=== PATIENT | male | born 1950 | race Caucasian/White ===

== ENCOUNTER 2022-04-23 10:18 | Inpatient (IN) ==
[2022-04-23] MEDS ORDERED: ALBUT/IPRATROP 3MG/0.5MG NEB 3 ML VIAL NEB STA (10:32)
[2022-04-23] MEDS ORDERED: methylPREDNISolone 125 MG/2 ML VIAL IV STA (10:32)
--- NOTE | 2022-04-23 10:38 | Emergency Department Note ---
Impression & Plan Left lower lobe pneumonia, Retrosternal chest pain, Hypoxia, Cough productive of yellow sputum ED Provider Note INFORMANT: Patient ED PROVIDER(S): Juan Ramon Stanton MD CHIEF COMPLAINT: Chest pain PLAN: Disposition: Admitted Condition: Good Outpatient prescription management: none Referral: None MEDICAL DECISION MAKING: Patient presented because of breathing issues and chest pain. Work-up was initiated. ECG did not show ischemia. X-ray was concerning for left lower lobe infiltrate. Patient had blood cultures obtained. His CBC and chemistry panel was unremarkable. Patient was treated with IV Rocephin and doxycycline after discussion with the ED pharmacist. Patient was also treated with a DuoNeb and Solu-Medrol. On reassessment he was feeling better but still requiring leiva pplemental oxygen. Further management in the hospital will be necessary. Consultation was made with the [facility] hospitalist service. Patient was evaluated in the ER and admitted for further management Triage Nursing notes reviewed and agree them. Vital Signs: reviewed and remarkable for hypoxia Differential diagnosis: COVID, influenza, cardiac ischemia, aortic dissection, pulmonary embolism, pneumothorax, pneumonia, pericarditis, myocarditis, esophageal rupture, GERD, cholecystitis, pancreatitis, musculoskeletal, as well as other pathologies. Diagnostics interpreted by me: ECG: Twelve-lead ECG reveals sinus rhythm with first-degree block at 76 bpm. Left anterior fascicular block and LVH present. No ST elevation. Cardiac Monitoring: Cardiac monitoring ordered by me: The patient was placed on continuous cardiac monitoring and observed. It revealed a normal sinus rhythm at 83 beats per minute without ectopy or evidence of dysrhythmia. Imaging studies: Chest x-ray consistent with left lower lobe infiltrate HPI: The patient is a 71year old male who presents to the Emergency Room with complaints of chest pain. This started just prior to arrival while at the [facility] GI clinic and is currently resolved. Patient states it was retrosternal. He was noted to have an O2 saturation in the 80s. He responded to supplemental oxygen. Patient denies wearing oxygen on a regular basis. The patient also notes the following associated symptoms, productive cough. The patient has been given no medication for relieving factors. Current pain is rated as 0/10. No known sick contacts. Pt denies LOC, headache, fevers, chills, neck pain, nausea, vomiting, abdominal pain, back pain, urinary symptoms, weakness, lymphadenopathy, rash, or other complaints. ROS: See above HPI for pertinent positives & negatives. A total of 10 systems reviewed and were otherwise negative. PAST MEDICAL HISTORY:See Below , hypertension PAST SURGICAL HISTORY:See Below, right shoulder surgery FAMILY HISTORY:See Below SOCIAL HISTORY:See Below, lives in a personal assisted HOME MEDICATIONS:See Below ALLERGIES:See Below VITALS:See Below PHYSICAL EXAMINATION: GENERAL: Awake, alert, psu-[id number]-[id number], in no distress HENT: Normocephalic, atraumatic. Oropharynx unremarkable. EYES: Normal conjunctiva. Sclera non-icteric. NECK: Inspection normal. Non-tender. Supple. No nuchal rigidity. FROM. No masses. RESPIRATORY: Clear to auscultation. No wheezes. No rales. Normal respiratory effort. CARDIAC: Normal rate. Normal rhythm. No murmurs. No rubs. Extremities warm and well perfused. Pulses equal. No JVD. GI: Soft, non-distended. No tenderness to palpation. No rebound or guarding. No masses. RECTAL: Deferred. MUSCULOSKELETAL: Atraumatic. Chest examination reveals no tenderness. The back is symmetrical on inspection without obvious abnormality. There is no CVA tenderness to palpation. No joint edema. LOWER EXTREMITIES: Calves are equal size bilaterally and non-tender. 2-3+ edema. No discoloration. NEURO: Normal sensorium. No sensory or motor deficits noted. SKIN: No rash or jaundice noted. Juan Ramon Stanton MD Past Med/Surg History Medical History (Updated 04/23/22 @ 16:50 by Juan Ramon Stanton MD) Adjustment disorder Bipolar disorder Cirrhosis of liver COPD (chronic obstructive pulmonary disease) DM II (diabetes mellitus, type II), controlled History of nephrolithotomy with removal of calculi HLD (hyperlipidemia) HTN (hypertension) Hypothyroidism Surgical History (Updated 04/23/22 @ 12:44 by Mary Ann Mcarthur PA-C) Hx of colonoscopy Hx of esophagogastroduodenoscopy Hx of inguinal hernia repair Family History (Updated 04/23/22 @ 12:45 by Mary Ann Mcarthur PA-C) Other Cancer Dementia Liver disease Social History (Updated 04/23/22 @ 12:46 by Mary Ann Mcarthur PA-C) Smoking Status: Current some day smoker Tobacco Type: Cigarettes, Pipe and Cigars packs per day: 0.25; Hx Alcohol Use: Yes Alcohol type: beer Feels Safe at Home: Yes Allergies Allergies Allergy/AdvReac Type Severity Reaction Status Date / Time No Known Drug Allergies Allergy Verified 04/23/22 13:30 Home Meds Home Medications Medication Instructions Recorded Confirmed alfuzosin 10 mg tablet,extended 10 mg PO QAM 04/23/22 04/23/22 release 24 hr aspirin 81 mg tablet,delayed 81 mg PO QAM 04/23/22 04/23/22 release famotidine 40 mg tablet 40 mg PO BID 04/23/22 04/23/22 ferrous sulfate 325 mg (65 mg 325 mg PO QAM 04/23/22 04/23/22 iron) tablet (FeroSul) fluticasone fur. 100 mcg-umeclid 1 inh inhalation DAILY 04/23/22 04/23/22 62.5 mcg-vilant 25 mcg inhalat.powder (Trelegy Ellipta) furosemide 20 mg tablet 20 mg PO QAM 04/23/22 04/23/22 glipizide 10 mg tablet, extended 100 mg PO BID 04/23/22 04/23/22 release 24 hr ibuprofen 800 mg tablet 800 mg PO TID 04/23/22 04/23/22 ipratropium 0.5 mg-albuterol 3 mg 1 ml inhalation TID 04/23/22 04/23/22 (2.5 mg base)/3 mL nebulization soln levothyroxine 150 mcg tablet 150 mcg PO QAM 04/23/22 04/23/22 lisinopril 20 mg tablet 20 mg PO QAM 04/23/22 04/23/22 loperamide 2 mg capsule 2 mg PO Q4H PRN Diarrhea 04/23/22 04/23/22 magnesium oxide 400 mg (241.3 mg 400 mg PO QAM 04/23/22 04/23/22 magnesium) tablet omeprazole 20 mg capsule,delayed 20 mg PO QAM 04/23/22 04/23/22 release oxybutynin chloride 5 mg tablet 5 mg PO BID 04/23/22 04/23/22 potassium chloride 20 mEq 20 meq PO QAM 04/23/22 04/23/22 tablet,extended release(part/cryst) simvastatin 40 mg tablet 40 mg PO DAILY 04/23/22 04/23/22 vit C 250 mg-vit E 90 mg-zinc 40 2 tab PO QAM 04/23/22 04/23/22 mg-copper 1 [id number] capsule (PreserVision AREDS-2) Results & Data (ED) Vital Signs Vital Signs - 24 hr 04/23/22 10:20 04/23/22 10:40 04/23/22 11:27 Temperature 36.8 C Temperature Source Oral Pulse Rate 80 Pulse Rate [Right Finger] Pulse Rhythm [Right Finger] Respiratory Rate 20 Respiratory Effort / Characteristics Respiratory Depth Respiratory Pattern Blood Pressure 143/90 H Blood Pressure [Right Arm] Blood Pressure Mean 107 Blood Pressure Mean [Right Arm] Blood Pressure Position [Right Arm] Pulse Oximetry 93 93 97 Oxygen Delivery Method Nasal Cannula Nasal Cannula Room Air Oxygen Flow Rate 4 3 Sepsis Recent Fever Within 48 Hours No Sepsis New/Unexplained Change in Mental Status N/A Sepsis Action Taken by Nursing No Action Required 04/23/22 12:08 Temperature 36.7 C Temperature Source Oral Pulse Rate Pulse Rate [Right Finger] 75 Pulse Rhythm [Right Finger] Regular Respiratory Rate 24 Respiratory Effort / Characteristics Spontaneous Labored Respiratory Depth Shallow Respiratory Pattern Rapid/Shallow Blood Pressure Blood Pressure [Right Arm] 158/102 H Blood Pressure Mean Blood Pressure Mean [Right Arm] 120 Blood Pressure Position [Right Arm] Lying Pulse Oximetry 90 Oxygen Delivery Method Nasal Cannula Oxygen Flow Rate 5 Sepsis Recent Fever Within 48 Hours Sepsis New/Unexplained Change in Mental Status Sepsis Action Taken by Nursing Laboratory Data Result diagrams: 04/23/22 11:02 04/23/22 11:02 Lab Results 04/23/22 04/23/22 04/23/22 Range/Units 11:02 11:02 11:02 WBC 7.48 (4.8-10.8) K/ul RBC 5.09 (4.63-6.08) M/uL Hgb 16.0 (14.0-18.0) g/dl Hct 47.3 (40.1-51.0) % MCV 92.9 (80.0-100.0) fL MCH 31.4 (25.0-34.0) pg MCHC 33.8 (32.0-36.0) g/dL RDW Std Deviation 45.5 (36.4-46.3) fL RDW Coeff of Anahy 13.3 (11.5-14.5) % Plt Count 178 (130-400) K/uL MPV 10.4 (9.4-12.4) fL Immature Gran % (Auto) 0.5 % Neut % (Auto) 70.0 % Lymph % (Auto) 20.9 % [place] % (Auto) 6.7 % Eos % (Auto) 1.2 % Baso % (Auto) 0.7 % Neut # (Auto) 5.24 (1.4-6.5) K/uL Lymph # (Auto) 1.56 (1.2-3.4) K/uL [place] # (Auto) 0.50 (0.24-0.82) K/uL Eos # (Auto) 0.09 (0-0.50) K/uL Baso # (Auto) 0.05 (0-0.2) K/uL Immature Gran # (Auto) 0.04 H (0.00-0.02) K/uL Sodium 136 (136-145) mmol/L Potassium 4.3 (3.5-5.1) mmol/L Chloride 99 (98-107) mmol/L Carbon Dioxide 30 (21-32) mmol/L Anion Gap 7 (3-11) BUN 23 (6-23) mg/dl Creatinine 0.78 (0.6-1.4) mg/dl Est Cr Clr Drug Dosing 133.9 ml/min Est GFR ( Amer) 106.0 ml/min Est GFR (Non-Af Amer) 91.5 ml/min BUN/Creatinine Ratio 29.5 H (10-20) Glucose 255 H (70-99(Fasting)) mg/dl Calcium 9.0 (8.5-10.1) mg/dl Total Bilirubin 0.4 (0.2-1.0) mg/dl AST 25 (13-39) U/L ALT 29 (7-52) U/L Alkaline Phosphatase 102 (34-104) U/L Troponin I High Sens 13.3 (0-20) pg/ml B-Natriuretic Peptide 24 (0-100) pg/ml Total Protein 7.0 (6.0-8.3) gm/dl Albumin 4.0 (3.4-5.0) gm/dl Globulin 3.0 (2.5-4.0) gm/dl Albumin/Globulin Ratio 1.3 (0.9-2) Lipase 20 (11-82) U/L Procalcitonin (0-0.5) ng/ml SARS-CoV-2 (PCR) (Negative) Influenza Type A (PCR) (Neg) Influenza Type B (PCR) (Neg) RSV (RT-PCR) (Neg) 04/23/22 04/23/22 Range/Units 11:02 11:05 WBC (4.8-10.8) K/ul RBC (4.63-6.08) M/uL Hgb (14.0-18.0) g/dl Hct (40.1-51.0) % MCV (80.0-100.0) fL MCH (25.0-34.0) pg MCHC (32.0-36.0) g/dL RDW Std Deviation (36.4-46.3) fL RDW Coeff of Anahy (11.5-14.5) % Plt Count (130-400) K/uL MPV (9.4-12.4) fL Immature Gran % (Auto) % Neut % (Auto) % Lymph % (Auto) % [place] % (Auto) % Eos % (Auto) % Baso % (Auto) % Neut # (Auto) (1.4-6.5) K/uL Lymph # (Auto) (1.2-3.4) K/uL [place] # (Auto) (0.24-0.82) K/uL Eos # (Auto) (0-0.50) K/uL Baso # (Auto) (0-0.2) K/uL Immature Gran # (Auto) (0.00-0.02) K/uL Sodium (136-145) mmol/L Potassium (3.5-5.1) mmol/L Chloride (98-107) mmol/L Carbon Dioxide (21-32) mmol/L Anion Gap (3-11) BUN (6-23) mg/dl Creatinine (0.6-1.4) mg/dl Est Cr Clr Drug Dosing ml/min Est GFR ( Amer) ml/min Est GFR (Non-Af Amer) ml/min BUN/Creatinine Ratio (10-20) Glucose (70-99(Fasting)) mg/dl Calcium (8.5-10.1) mg/dl Total Bilirubin (0.2-1.0) mg/dl AST (13-39) U/L ALT (7-52) U/L Alkaline Phosphatase (34-104) U/L Troponin I High Sens (0-20) pg/ml B-Natriuretic Peptide (0-100) pg/ml Total Protein (6.0-8.3) gm/dl Albumin (3.4-5.0) gm/dl Globulin (2.5-4.0) gm/dl Albumin/Globulin Ratio (0.9-2) Lipase (11-82) U/L Procalcitonin 0.11 (0-0.5) ng/ml SARS-CoV-2 (PCR) NEGATIVE (Negative) Influenza Type A (PCR) Negative (Neg) Influenza Type B (PCR) Negative (Neg) RSV (RT-PCR) Negative (Neg) Administered Medications Albuterol (Albut/Ipratrop 3mg/0.5mg Neb 3 Ml Vial) 3 ml NEB Q4R ADILENE; Protocol Stop: 05/23/22 15:01 Last Admin: 04/23/22 15:52 Dose: 3 ml Documented By: EAMiguel Discontinued Medications Albuterol (Albut/Ipratrop 3mg/0.5mg Neb 3 Ml Vial) 3 ml NEB NOW STA; Protocol Stop: 04/23/22 10:33 Last Admin: 04/23/22 11:03 Dose: 3 ml Documented By: TABATHA Ceftriaxone Sodium (Rocephin) 2,000 mg in 70 mls @ 140 mls/hr IV NOW STA Stop: 04/23/22 11:29 Last Infusion: 04/23/22 12:21 Dose: 0 mls/hr Documented By: Admin: 04/23/22 11:49 Dose: 140 mls/hr Documented By: NIKKO Doxycycline Hyclate 100 mg/ (Dextrose) 110 mls @ 50 mls/hr IV NOW STA Stop: 04/23/22 13:11 Last Infusion: 04/23/22 14:31 Dose: 0 mls/hr Documented By: Admin: 04/23/22 12:01 Dose: 50 mls/hr Documented By: NIKKO Methylprednisolone (Methylprednisolone 125 Mg/2 Ml Vial) 125 mg IV NOW STA Stop: 04/23/22 10:33 Last Admin: 04/23/22 11:04 Dose: 125 mg Documented By: [facility] Imaging Data Radiologist's Impression: Chest X-Ray 04/23/22 10:24 XR chest 1V portable HISTORY: Atypical Chest pain, nonspecific COMPARISON: None. FINDINGS: No pneumothorax. There are low lung volumes. The heart is mildly enlarged. There is perihilar interstitial/vascular thickening consistent with mild congestive change. There are patchy left lower lobe airspace opacities. Mild elevation the right hemidiaphragm. There is a right shoulder prosthesis. IMPRESSION: 1. Patchy left basilar airspace opacities likely representing a pneumonia. 2. Cardiomegaly with mild congestive change. ACT 112: Negative or not required by law. Electronically signed by: Evens Mendez M.D. 04/23/2022 10:45 AM Discharge Plan Visit Data Chief Complaint: Chest Pain ED Provider: Juan Ramon Stanton Discharge Problem: Left lower lobe pneumonia, Retrosternal chest pain, Hypoxia, Cough productive of yellow sputum Patient Disposition: Admitted As Inpatient Discharge Instructions Interventions: ED Discharge Assessment Last Done: 04/23/22 15:01
--- NOTE | 2022-04-23 10:46 | XRay Report ---
XR chest 1V portable HISTORY: Atypical Chest pain, nonspecific COMPARISON: None. FINDINGS: No pneumothorax. There are low lung volumes. The heart is mildly enlarged. There is perihil ar interstitial/vascular thickening consistent with mild congestive change. There are patchy left low er lobe airspace opacities. Mild elevation the right hemidiaphragm. There is a right shoulder prosthe sis. IMPRESSION: 1. Patchy left basilar airspace opacities likely representing a pneumonia. 2. Cardiomegaly with mild congestive change. ACT 112: Negative or not required by law. Electronically signed by: Evens Mendez M.D. 04/23/2022 10:45 AM
[2022-04-23] MEDS ORDERED: DOXYCYCLINE HYCLATE 100 MG in DEXTROSE 5% 100 ML IV STA (11:00)
[2022-04-23] MEDS ORDERED: cefTRIAXone SODIUM 2,000 MG/70 ML BAG IV STA (11:00)
[2022-04-23 11:37] LABS: Basophils # (auto) 0.05 K/uL (0-0.2); Basophils % (auto) 0.7 %; Eosinophils # (auto) 0.09 K/uL (0-0.50); Eosinophils % (auto) 1.2 %; Hematocrit (blood only) 47.3 % (40.1-51.0); Immature Granulocytes # (auto) 0.04 K/uL (0.00-0.02); Immature Granulocytes % (auto) 0.5 %; Lymphocytes # (auto) 1.56 K/uL (1.2-3.4); Lymphocytes % (auto) 20.9 %; Mean Corpuscular Hemoglobin 31.4 pg (25.0-34.0); Mean Corpuscular Hgb Conc 33.8 g/dL (32.0-36.0); Mean Corpuscular Volume 92.9 fL (80.0-100.0); Mean Platelet Volume 10.4 fL (9.4-12.4); Monocytes % (auto) 6.7 %; Neutrophils # (auto) 5.24 K/uL (1.4-6.5); Platelet Count 178 K/uL (130-400); RDW Coefficient of Variation 13.3 % (11.5-14.5); RDW Standard Deviation 45.5 fL (36.4-46.3); Red Blood Count 5.09 M/uL (4.63-6.08); White Blood Count 7.48 K/ul (4.8-10.8)
[2022-04-23 11:58] LABS: Albumin Globulin Ratio 1.3 (0.9-2); BUN Creatinine Ratio 29.5 (10-20); Bilirubin,Total 0.4 mg/dl (0.2-1.0); Creatinine Clr Calc Pharmacy 133.9 ml/min; Est GFR (Non-African American) 91.5 ml/min; Potassium 4.3 mmol/L (3.5-5.1)
[2022-04-23 12:00] LABS: Troponin I High Sensitivity 13.3 pg/ml (0-20)
[2022-04-23 12:23] LABS: Influenza A virus by PCR Negative (Neg); Influenza B virus by PCR Negative (Neg); RSV by PCR Negative (Neg); SARS CoV2 RNA(COVID-19) Ceph NEGATIVE (Negative)
--- NOTE | 2022-04-23 12:49 | History & Physical Report ---
Date of Service April 23, 2022 Assessment & Plan (1) Acute respiratory failure with hypoxia: (2) COPD (chronic obstructive pulmonary disease): (3) Left lower lobe pneumonia: Plan: - Admit to med surg with tele - Supportive care with mucinex, duonebs QID and Q2H prn, cough syrup. No further steroids at this time, given 125 mg Solumedrol in the ER. Day team to reassess - Wean O2 prn - wears 2.5 L previously as outpt but is noncompliant. Scheduled for outpt sleep study for likely DONNA with morbid obesity. Also likely has component of obesity hypoventilation syndrome with body habitus. - Influenza, covid and RSV neg - WBC at time of admission = 7.48 - BCx x 2, follow - Afebrile - Lactic acid , Procalcitonin and CRP pending - CXR reviewed as above showing the LLL pneumonia, personally reviewed images by myself - Continue antibiotic therapy with Ceftriaxone and doxycycline IV - Hx of smoking 0.25 ppd x 40 years, quit a few months ago when became resident of this facility (4) Retrosternal chest pain: Plan: - Sound that this was acutally respiratory in nature secondary to above - EKG reviewed, no current chest pain, takes baby aspirin and statin daily , check EKG with am labs - Check 2d echo for completeness - Initial high sensitivity trop was 13.3, will repeat now to ensure no elevation (5) HTN (hypertension): Plan: - Continue lisinopril, lasix (6) HLD (hyperlipidemia): Plan: - Cont statin therapy (7) Cirrhosis of liver: Plan: - Noted on GI notes from today that this was seen on imaging. Pt reports previousl alchol history but not since being in [facility]. - Will need PCP to monitor - Lower extremity edema being treated with lasix (8) DM II (diabetes mellitus, type II), controlled: Plan: - Last A1C was 7.6, will recheck with am labs - Continue ISS with accuchecks achs - Hold glipizide and metformin for now - Glucose was elevated at 255 upon arrival - Glycemic pharmacy consulted (9) Hypothyroidism: Plan: - Cont levothyroxine 150 mcg daily (10) Bipolar disorder: (11) Adjustment disorder: Plan: - Does not appear that the patient is on any mood stabilizing medication. Cooperative and pleasant for exam so at this time no needs for psych consult. DVT ppx: - teds, scds, Lovenox subcu CODE: Full code Dispo: From home, likely to remain in the hospital x 1-2 days. From [facility] in [place], counseling case manager to assist with discharge planning. History of Present Illness Chief Complaint: Substernal chest pain, shortness of breath Primary Care Provider: Zohra Loo This is a 71-year-old male with PMHx of HTN, HLD, COPD, DM type II, hypothyroidism, bipolar and personality disorder, morbid obesity with BMI of 41.1 who presents to the ER from the GI clinic today after development of substernal chest pain and found to be hypoxic with O2 sats in the low 80s. The patient reports that he has been coughing and bringing up yellow to clear mucus occasionally in the last week. He notes this has been going on for months but feels it specifically worsened in the last week. He denies any known sick contacts but does come from [facility] in [facility] and is around many residents. He denies any other upper respiratory symptoms including fever, chills or sweats. His appetite has been good, no abdominal complaints, bowels moving regularly, no complaints of urination. Discussion with nurse at [facility] was held via phone, she reports that he is supposed to wear 2.5 L of O2 at rest and with exertion however he stopped doing this several months ago. Patient had a right humerus fracture after a fall sustained in December 2021 which was treated surgically and after that procedure, he felt that he did not need to wear O2 any longer. He is scheduled for an outpatient sleep apnea study soon however is not currently on any CPAP. Allergies Allergy/AdvReac Type Severity Reaction Status Date / Time No Known Drug Allergies Allergy Verified 04/23/22 13:30 Home Medications Medication Instructions Recorded Confirmed Type alfuzosin 10 mg tablet,extended 10 mg PO QAM 04/23/22 04/23/22 History release 24 hr aspirin 81 mg tablet,delayed 81 mg PO QAM 04/23/22 04/23/22 History release famotidine 40 mg tablet 40 mg PO BID 04/23/22 04/23/22 History ferrous sulfate 325 mg (65 mg 325 mg PO QAM 04/23/22 04/23/22 History iron) tablet (FeroSul) fluticasone fur. 100 mcg-umeclid 1 inh inhalation DAILY 04/23/22 04/23/22 History 62.5 mcg-vilant 25 mcg inhalat.powder (Trelegy Ellipta) furosemide 20 mg tablet 20 mg PO QAM 04/23/22 04/23/22 History glipizide 10 mg tablet, extended 100 mg PO BID 04/23/22 04/23/22 History release 24 hr ibuprofen 800 mg tablet 800 mg PO TID 04/23/22 04/23/22 History ipratropium 0.5 mg-albuterol 3 mg 1 ml inhalation TID 04/23/22 04/23/22 History (2.5 mg base)/3 mL nebulization soln levothyroxine 150 mcg tablet 150 mcg PO QAM 04/23/22 04/23/22 History lisinopril 20 mg tablet 20 mg PO QAM 04/23/22 04/23/22 History loperamide 2 mg capsule 2 mg PO Q4H PRN Diarrhea 04/23/22 04/23/22 History magnesium oxide 400 mg (241.3 mg 400 mg PO QAM 04/23/22 04/23/22 History magnesium) tablet omeprazole 20 mg capsule,delayed 20 mg PO QAM 04/23/22 04/23/22 History release oxybutynin chloride 5 mg tablet 5 mg PO BID 04/23/22 04/23/22 History potassium chloride 20 mEq 20 meq PO QAM 04/23/22 04/23/22 History tablet,extended release(part/cryst) simvastatin 40 mg tablet 40 mg PO DAILY 04/23/22 04/23/22 History vit C 250 mg-vit E 90 mg-zinc 40 2 tab PO QAM 04/23/22 04/23/22 History mg-copper 1 [id number] capsule (PreserVision AREDS-2) Past Med/Surg History Medical History (Updated 04/23/22 @ 13:50 by Mary Ann Mcarthur PA-C) Adjustment disorder Bipolar disorder Cirrhosis of liver COPD (chronic obstructive pulmonary disease) DM II (diabetes mellitus, type II), controlled History of nephrolithotomy with removal of calculi HLD (hyperlipidemia) HTN (hypertension) Hypothyroidism Surgical History (Updated 04/23/22 @ 12:44 by Mary Ann Mcarthur PA-C) Hx of colonoscopy Hx of esophagogastroduodenoscopy Hx of inguinal hernia repair Family History (Updated 04/23/22 @ 12:45 by Mary Ann Mcarthur PA-C) Other Cancer Dementia Liver disease Social History (Updated 04/23/22 @ 12:46 by Mary Ann Mcarthur PA-C) Smoking Status: Current some day smoker Tobacco Type: Cigarettes, Pipe and Cigars packs per day: 0.25; Hx Alcohol Use: Yes Alcohol type: beer Feels Safe at Home: Yes Review of Systems Review of Systems: Constitutional: No fever, sweats or chills Eyes: No diplopia, no worsening or blurred vision ENT: normal hearing, no trouble swallowing Respiratory: + cough, +sputum, +dyspnea on exertion Cardiovascular: No chest pain currently, tightness or palpitations Abdomen: No pain, nausea, vomiting, diarrhea or constipation Musculoskeletal: No joint pain, calf pain, swelling Neurologic: No weakness, numbness/tingling, or balance problems Psychiatric: No anxiety or depression, history of bipolar Skin: No rash or itch Physical Exam Physical Exam: General: awake, alert, no apparent distress, morbidly obese with BMI of 41 Head: Normocephalic, atraumatic ENT: PERRL, EOMI, no pharyngeal exudate, mucous membranes moist Chest: Left lobe with diminished breath sounds as well as inspiratory and expiratory wheeze, rales. Maintaining at low 90s on oximask, right side without no adventitious breath sounds Cardiac: Regular rate and rhythm, no murmur, no JVD, normal peripheral pulses, good capillary refill Abdominal: NABS x 4 quadrants, soft, nondistended, nontender to palpation, no rebound or guarding Extremities: Normal inspection, 1+ peripheral edema of BLE, minimal pitting, no erythema, calfs nontender to palpation Psych: Normal mood and affect, pill-rolling behavior with his left hand throughout exam Neuro: AAO x 3, strength intact bilaterally and rated 5/5, no motor deficits, speech is clear, no peripheral sensory deficits Results & Data Results & Data ([facility]) Vital Signs (Past 12 Hours) Vital Signs Temp Pulse Pulse Resp BP BP Pulse Ox 04/23/22 12:08 36.7 C 75 24 158/102 H 90 04/23/22 11:27 97 04/23/22 10:40 93 04/23/22 10:20 36.8 C 80 20 143/90 H 93 O2 Del Method O2 Flow Rate 04/23/22 12:08 Nasal Cannula 5 04/23/22 11:27 Room Air 04/23/22 10:40 Nasal Cannula 3 04/23/22 10:20 Nasal Cannula 4 Laboratory Results 04/23/22 11:40 Aerobic Blood Culture - Pending Blood Anaerobic Blood Culture - Pending 04/23/22 11:09 Aerobic Blood Culture - Pending Blood Anaerobic Blood Culture - Pending 04/23/22 04/23/22 04/23/22 11:05 11:02 11:02 WBC RBC Hgb Hct MCV MCH MCHC RDW Std Deviation RDW Coeff of Anahy Plt Count MPV Immature Gran % (Auto) Neut % (Auto) Lymph % (Auto) [place] % (Auto) Eos % (Auto) Baso % (Auto) Neut # (Auto) Lymph # (Auto) [place] # (Auto) Eos # (Auto) Baso # (Auto) Immature Gran # (Auto) Sodium 136 Potassium 4.3 Chloride 99 Carbon Dioxide 30 Anion Gap 7 BUN 23 Creatinine 0.78 Est Cr Clr Drug Dosing 133.9 Est GFR ( Amer) 106.0 Est GFR (Non-Af Amer) 91.5 BUN/Creatinine Ratio 29.5 H Glucose 255 H Calcium 9.0 Total Bilirubin 0.4 AST 25 ALT 29 Alkaline Phosphatase 102 Troponin I High Sens 13.3 B-Natriuretic Peptide 24 Total Protein 7.0 Albumin 4.0 Globulin 3.0 Albumin/Globulin Ratio 1.3 Lipase 20 SARS-CoV-2 (PCR) NEGATIVE Influenza Type A (PCR) Negative Influenza Type B (PCR) Negative RSV (RT-PCR) Negative 04/23/22 11:02 WBC 7.48 RBC 5.09 Hgb 16.0 Hct 47.3 MCV 92.9 MCH 31.4 MCHC 33.8 RDW Std Deviation 45.5 RDW Coeff of Anahy 13.3 Plt Count 178 MPV 10.4 Immature Gran % (Auto) 0.5 Neut % (Auto) 70.0 Lymph % (Auto) 20.9 [place] % (Auto) 6.7 Eos % (Auto) 1.2 Baso % (Auto) 0.7 Neut # (Auto) 5.24 Lymph # (Auto) 1.56 [place] # (Auto) 0.50 Eos # (Auto) 0.09 Baso # (Auto) 0.05 Immature Gran # (Auto) 0.04 H Sodium Potassium Chloride Carbon Dioxide Anion Gap BUN Creatinine Est Cr Clr Drug Dosing Est GFR ( Amer) Est GFR (Non-Af Amer) BUN/Creatinine Ratio Glucose Calcium Total Bilirubin AST ALT Alkaline Phosphatase Troponin I High Sens B-Natriuretic Peptide Total Protein Albumin Globulin Albumin/Globulin Ratio Lipase SARS-CoV-2 (PCR) Influenza Type A (PCR) Influenza Type B (PCR) RSV (RT-PCR) Diagnostic Findings Chest X-Ray 04/23/22 10:24 XR chest 1V portable HISTORY: Atypical Chest pain, nonspecific COMPARISON: None. FINDINGS: No pneumothorax. There are low lung volumes. The heart is mildly enlarged. There is perihilar interstitial/vascular thickening consistent with mild congestive change. There are patchy left lower lobe airspace opacities. Mild elevation the right hemidiaphragm. There is a right shoulder prosthesis. IMPRESSION: 1. Patchy left basilar airspace opacities likely representing a pneumonia. 2. Cardiomegaly with mild congestive change. ACT 112: Negative or not required by law. Electronically signed by: Evens Mendez M.D. 04/23/2022 10:45 AM Code Status & VTE Plan Code Status Full code - discussed with the patient at bedside Supervising Physician Co-Signing Physician Notes Pt is a 71 y/o M with hx of DMII, COPD, HFpEF, Cirrhosis BPH, Bipolar disorder, depression, hypothyroidism, HLD admitted for Bacterial pneumonia. At bedside: pt complained of coughing and SOB but denied any CP PE: Obese pt, oxymask in place Lungs: fair air entry b/l but R lower lobe exp wheezing with b/l lower lobe rales Cardiac: normal S1/S2, no murmur Abd: Obese abd, soft, NT MSK: b/l mild LE pitting edema Psych: normal affect A/P: Acute respiratory failure with hypoxia: -2/2 Left lower lobe pneumonia +/- COPD exacerbation -will start pt on ceftriaxone and Doxy -COPD/RSV/Flu: neg - the wheezing might be 2/2 PNA ---- if wheezing persist then will do prednisone daily with taper on discharge -wean off oxygen as tolerates Chest pain: -at bedside pt denied any CP but told ER doc he had CP -likely 2/2 Pneumonia + MSK -however due to multiple chronic conditions will trend Trop Other chronic conditions: plan as above Agree with A/P by Lnig Mcarthur PA-C
[2022-04-23 14:59] LABS: Troponin I High Sensitivity 13.6 pg/ml (0-20)
[2022-04-23 15:00] LABS: C Reactive Protein 0.94 mg/dl (0-0.5)
[2022-04-23] MEDS ORDERED: guaiFENesin/CODEINE 100MG/10MG 5ML UDC PO PRN (15:02)
[2022-04-23] MEDS ORDERED: ONDANSETRON INJ 2 MG/ML 2 ML VIAL IV PRN (15:02)
[2022-04-23] MEDS ORDERED: CARBOHYDRATES FOR HYPOGLYCEMIA PO PRN ×2 (15:02→17:49)
[2022-04-23] MEDS ORDERED: GLUCAGON FOR INJ 1 MG VIAL SQ PRN (15:02)
[2022-04-23] MEDS ORDERED: DEXTROSE 50% 50 ML SYRINGE IV PRN (15:02)
[2022-04-23] MEDS ORDERED: GLUCOSE 10 TAB/TUBE PO PRN (15:02)
[2022-04-23] MEDS ORDERED: GLUCOSE 40% GEL 15 GM TUBE PO PRN (15:02)
[2022-04-23] MEDS: ALBUT/IPRATROP 3MG/0.5MG NEB 3 ML VIAL NEB SCH ×3 (15:52→23:12)
[2022-04-23] MEDS ORDERED: INSULIN ASPART PER UNIT SC SCH (16:30)
[2022-04-23] MEDS ORDERED: INSULIN ASPART PER UNIT SC STA (17:49)
[2022-04-23] MEDS: guaiFENesin 600 MG TABCR PO SCH (20:48)
[2022-04-23] MEDS: FAMOTIDINE 40 MG TABLET PO SCH (20:48)
[2022-04-23] MEDS: OXYBUTYNIN CHLORIDE 5 MG TAB PO SCH (20:49)
[2022-04-23] MEDS ORDERED: ALBUT/IPRATROP 3MG/0.5MG NEB 3 ML VIAL INH SCH (21:00)
[2022-04-23] MEDS ORDERED: LANTUS PER UNIT CHARGE SQ SCH (21:00)
[2022-04-23] MEDS: INSULIN ASPART PER UNIT SC SCH (23:02)
[2022-04-24] MEDS: ALBUT/IPRATROP 3MG/0.5MG NEB 3 ML VIAL NEB SCH ×6 (02:13→23:05)
[2022-04-24] MEDS: LEVOTHYROXINE SODIUM 150 MCG TABLET PO SCH (05:58)
[2022-04-24 06:23] LABS: Hematocrit (blood only) 45.4 % (40.1-51.0); Hemoglobin 15.1 g/dl (14.0-18.0); Mean Corpuscular Hemoglobin 31.4 pg (25.0-34.0); Mean Corpuscular Hgb Conc 33.3 g/dL (32.0-36.0); Mean Corpuscular Volume 94.4 fL (80.0-100.0); Mean Platelet Volume 11.2 fL (9.4-12.4); Platelet Count 160 K/uL (130-400); RDW Coefficient of Variation 13.5 % (11.5-14.5); RDW Standard Deviation 46.5 fL (36.4-46.3); Red Blood Count 4.81 M/uL (4.63-6.08); White Blood Count 12.08 K/ul (4.8-10.8)
[2022-04-24 06:33] LABS: Estimated Average Glucose 203 mg/dl; Hemoglobin A1C 8.7 % (4.5-5.6)
[2022-04-24 06:41] LABS: Alanine Aminotransferase 30 U/L (7-52); Albumin Globulin Ratio 1.3 (0.9-2); Albumin Level 4.1 gm/dl (3.4-5.0); Alkaline Phosphatase 90 U/L (34-104); BUN Creatinine Ratio 27.6 (10-20); Bilirubin,Total 0.5 mg/dl (0.2-1.0); Blood Urea Nitrogen 29 mg/dl (6-23); Calcium 8.5 mg/dl (8.5-10.1); Carbon Dioxide 29 mmol/L (21-32); Chloride 97 mmol/L (98-107); Creatinine Clr Calc Pharmacy 98.6 ml/min; Est GFR (Non-African American) 71.6 ml/min; Globulin 3.2 gm/dl (2.5-4.0); Glucose 325 mg/dl (70-99(Fasting)); Total Protein 7.3 gm/dl (6.0-8.3)
[2022-04-24 07:40] LABS: Magnesium 1.7 mg/dl (1.7-2.4); Potassium 4.2 mmol/L (3.5-5.1)
[2022-04-24] MEDS ORDERED: PHARMACY GLYCEMIC MGMT CONSULT PRN (08:06)
[2022-04-24] MEDS: INSULIN ASPART PER UNIT SC SCH ×4 (08:41→20:32)
[2022-04-24] MEDS: UMECLIDINIUM/VILANTEROL 62.5/25MCG 7 PUFFS/INHALER INH SCH (08:42)
[2022-04-24] MEDS: FLUTICASONE FUROATE 100MCG 14 PUFFS/INHALER INH SCH (08:43)
[2022-04-24] MEDS: ENOXAPARIN INJ 40 MG/0.4 ML SYR SQ SCH (08:43)
[2022-04-24] MEDS: CEROVITE ADV FORMULA TAB PO SCH (08:43)
[2022-04-24] MEDS: ASPIRIN 81 MG ECTAB PO SCH (08:44)
[2022-04-24] MEDS: lisinopril 20 MG TAB PO SCH (08:44)
[2022-04-24] MEDS: guaiFENesin 600 MG TABCR PO SCH ×2 (08:44→20:35)
[2022-04-24] MEDS: FUROSEMIDE 20 MG TAB PO SCH (08:44)
[2022-04-24] MEDS: OXYBUTYNIN CHLORIDE 5 MG TAB PO SCH ×2 (08:45→20:32)
[2022-04-24] MEDS: SIMVASTATIN 40 MG TAB PO SCH (08:45)
[2022-04-24] MEDS: ALFUZOSIN HCL 10 MG TAB PO SCH (08:45)
[2022-04-24] MEDS: MAGNESIUM OXIDE 400 MG TAB PO SCH (08:45)
[2022-04-24] MEDS: FAMOTIDINE 40 MG TABLET PO SCH ×2 (08:45→20:36)
[2022-04-24] MEDS: POTASSIUM CHLORIDE CRTAB 20 MEQ TABCR PO SCH (08:45)
[2022-04-24] MEDS: PANTOprazole 40 MG TAB PO SCH (08:46)
[2022-04-24] MEDS ORDERED: LANTUS PER UNIT CHARGE SQ SCH (09:00)
[2022-04-24] MEDS ORDERED: NON-FORMULARY MEDICATION (Fluticasone-Umeclidin-Vilanter [Trelegy Ellipta] 100-62.5-25 mcg INH SCH (09:00)
--- NOTE | 2022-04-24 12:49 | Hospitalist Progress Note ---
Date of Service April 24, 2022 Assessment & Plan (1) Acute respiratory failure with hypoxia: Plan: - likely secondary to pneumonia - RSV, COVID, flu negative - consolidation on CXR in LLL - started on ceftriaxone and doxycycline - wean O2 as tolerated - reportedly on 2.5 L NC at home - will do 2 step prior to discharge after 2 days of abx therapy (2) COPD (chronic obstructive pulmonary disease): Plan: - likely pneumonia with mild exacerbation - s/p IV steroids in ED on presentation - no wheezes appreciated on exam - will continue abx therapy and hold steroids for now - continue home inhalers (3) Left lower lobe pneumonia: Plan: - Admit to med surg with tele - Supportive care with mucinex, duonebs QID and Q2H prn, cough syrup. No further steroids at this time, given 125 mg Solumedrol in the ER. Day team to reassess - Wean O2 prn - wears 2.5 L previously as outpt but is noncompliant. Scheduled for outpt sleep study for likely DONNA with morbid obesity. Also likely has component of obesity hypoventilation syndrome with body habitus. - Influenza, covid and RSV neg - WBC at time of admission = 7.48 - BCx x 2, follow - Afebrile - CXR reviewed as above showing the LLL pneumonia - Continue antibiotic therapy with Ceftriaxone and doxycycline IV - Hx of smoking 0.25 ppd x 40 years, quit a few months ago when became resident of this facility - if Oxygen not able to wean after 48 hours of abx therapy will get 2 step eval for home oxygen (4) Retrosternal chest pain: Plan: - likely related to pneumonia and coughing - continue to treat - cardiac markers negative, ecg without ischemic changes - monitor for now (5) HTN (hypertension): Plan: - Continue lisinopril, lasix (6) HLD (hyperlipidemia): Plan: - Cont statin therapy (7) Cirrhosis of liver: Plan: - Noted on GI notes from today that this was seen on imaging. Pt reports previousl alchol history but not since being in [facility]. - Will need PCP to monitor - GI follow up as outpatient - Lower extremity edema being treated with lasix (8) DM II (diabetes mellitus, type II), controlled: Plan: - Last A1C was 7.6, will recheck with am labs - Continue ISS with accuchecks achs - Hold glipizide and metformin for now - Glucose was elevated at 255 upon arrival - Glycemic pharmacy consulted (9) Hypothyroidism: Plan: - Cont levothyroxine 150 mcg daily (10) Bipolar disorder: Plan: - noted Plan DVT ppx: teds, scds, Lovenox subcu CODE: Full code Dispo: telemetry - From [facility] in [place], piano case maker to assist with discharge planning. Demetri Santiago MD Hospital Medicine Admission and Anticipated Discharge Date Admission Date: April 23, 2022 Subjective Patient with HTN, HLD, COPD reportedly on home O2 2.5L NC, DM2, hypothyroidism, bipolar disorder, morbid obesity presented with hypoxia and pneumonia, started on antibiotics and supplemental oxygen. Patient reports feeling ok. Denies chest pain, shortness of breath, n/v/d, abdominal pain, dysuria, fevers or chills. Reports cough productive of yellow or white sputum that is mostly unchanged from months ago. Review of Systems Review of Systems: All systems reviewed & are unremarkable except as noted in Subjective Physical Exam Physical Exam: General: awake, alert, no apparent distress, morbidly obese with BMI of 41 Head: Normocephalic, atraumatic ENT: PERRL, EOMI, no pharyngeal exudate, mucous membranes moist Chest: Left lobe with diminished breath sounds no wheezes or rhonchi noted Cardiac: Regular rate and rhythm, no murmur, no JVD, normal peripheral pulses, good capillary refill Abdominal: NABS x 4 quadrants, soft, nondistended, nontender to palpation, no rebound or guarding Extremities: Normal inspection, 1+ peripheral edema of BLE, minimal pitting, no erythema, calfs nontender to palpation Psych: Normal mood and affect, pill-rolling behavior with his left hand throughout exam Neuro: AAO x 3, strength intact bilaterally and rated 5/5 but reduced and reduced ROM on right shoulder due to recent fracture of humerus, no motor deficits, speech is clear, no peripheral sensory deficits Results & Data Results & Data ([facility]) Vital Signs (Past 12 Hours) Vital Signs Temp Pulse Pulse Resp BP Pulse Ox O2 Del Method 04/24/22 11:30 91 H 22 90 Oxymask 04/24/22 11:13 36.7 C 84 16 147/72 H 93 Oxymask 04/24/22 08:00 Oxymask 04/24/22 08:08 37.2 C 78 16 134/78 92 Nebulizer 04/24/22 07:36 77 16 93 Oxymask 04/24/22 07:23 88 04/24/22 03:04 36.8 C 89 20 137/73 90 Oxymask 04/24/22 02:30 91 H 04/24/22 02:13 83 26 H 92 Oxymask O2 Flow Rate 04/24/22 11:30 5 04/24/22 11:13 5 04/24/22 08:00 5 04/24/22 08:08 04/24/22 07:36 5 04/24/22 07:23 04/24/22 03:04 5 04/24/22 02:30 04/24/22 02:13 7 Diagnostic Findings Laboratory Results WBC 12.08 K/ul (4.8-10.8) H 04/24/22 05:36 RBC 4.81 M/uL (4.63-6.08) 04/24/22 05:36 Hgb 15.1 g/dl (14.0-18.0) 04/24/22 05:36 Hct 45.4 % (40.1-51.0) 04/24/22 05:36 MCV 94.4 fL (80.0-100.0) 04/24/22 05:36 MCH 31.4 pg (25.0-34.0) 04/24/22 05:36 MCHC 33.3 g/dL (32.0-36.0) 04/24/22 05:36 RDW Std Deviation 46.5 fL (36.4-46.3) H 04/24/22 05:36 RDW Coeff of Anahy 13.5 % (11.5-14.5) 04/24/22 05:36 Plt Count 160 K/uL (130-400) 04/24/22 05:36 MPV 11.2 fL (9.4-12.4) 04/24/22 05:36 Immature Gran % (Auto) 0.5 % 04/23/22 11:02 Neut % (Auto) 70.0 % 04/23/22 11:02 Lymph % (Auto) 20.9 % 04/23/22 11:02 Preble % (Auto) 6.7 % 04/23/22 11:02 Eos % (Auto) 1.2 % 04/23/22 11:02 Baso % (Auto) 0.7 % 04/23/22 11:02 Neut # (Auto) 5.24 K/uL (1.4-6.5) 04/23/22 11:02 Lymph # (Auto) 1.56 K/uL (1.2-3.4) 04/23/22 11:02 Preble # (Auto) 0.50 K/uL (0.24-0.82) 04/23/22 11:02 Eos # (Auto) 0.09 K/uL (0-0.50) 04/23/22 11:02 Baso # (Auto) 0.05 K/uL (0-0.2) 04/23/22 11:02 Immature Gran # (Auto) 0.04 K/uL (0.00-0.02) H 04/23/22 11:02 Sodium 137 mmol/L (136-145) 04/24/22 07:06 Potassium 4.2 mmol/L (3.5-5.1) 04/24/22 07:06 Chloride 97 mmol/L (98-107) L 04/24/22 05:36 Carbon Dioxide 29 mmol/L (21-32) 04/24/22 05:36 Anion Gap TNP 04/24/22 05:36 BUN 29 mg/dl (6-23) H 04/24/22 05:36 Creatinine 1.05 mg/dl (0.6-1.4) 04/24/22 05:36 Est Cr Clr Drug Dosing 98.6 ml/min 04/24/22 05:36 Est GFR ( Amer) 83.0 ml/min 04/24/22 05:36 Est GFR (Non-Af Amer) 71.6 ml/min 04/24/22 05:36 BUN/Creatinine Ratio 27.6 (10-20) H 04/24/22 05:36 Glucose 325 mg/dl (70-99(Fasting)) H* 04/24/22 05:36 POC Glucose 284 mg/dl (70-99) H 04/24/22 11:42 Estimat Average Glucose 203 mg/dl 04/24/22 05:36 Hemoglobin A1c 8.7 % (4.5-5.6) H 04/24/22 05:36 Lactate 1.5 mmol/L (0.4-2.0) 04/23/22 16:06 Calcium 8.5 mg/dl (8.5-10.1) 04/24/22 05:36 Magnesium 1.7 mg/dl (1.7-2.4) 04/24/22 07:06 Total Bilirubin 0.5 mg/dl (0.2-1.0) 04/24/22 05:36 AST 21 U/L (13-39) 04/24/22 07:06 ALT 30 U/L (7-52) 04/24/22 05:36 Alkaline Phosphatase 90 U/L (34-104) 04/24/22 05:36 Troponin I High Sens 13.4 pg/ml (0-20) 04/23/22 15:50 C-Reactive Protein 0.94 mg/dl (0-0.5) H 04/23/22 14:08 B-Natriuretic Peptide 24 pg/ml (0-100) 04/23/22 11:02 Total Protein 7.3 gm/dl (6.0-8.3) 04/24/22 05:36 Albumin 4.1 gm/dl (3.4-5.0) 04/24/22 05:36 Globulin 3.2 gm/dl (2.5-4.0) 04/24/22 05:36 Albumin/Globulin Ratio 1.3 (0.9-2) 04/24/22 05:36 Lipase 20 U/L (11-82) 04/23/22 11:02 Procalcitonin 0.11 ng/ml (0-0.5) 04/23/22 11:02 SARS-CoV-2 (PCR) NEGATIVE (Negative) 04/23/22 11:05 Influenza Type A (PCR) Negative (Neg) 04/23/22 11:05 Influenza Type B (PCR) Negative (Neg) 04/23/22 11:05 RSV (RT-PCR) Negative (Neg) 04/23/22 11:05 Impressions Chest X-Ray 04/23/22 10:24 XR chest 1V portable HISTORY: Atypical Chest pain, nonspecific COMPARISON: None. FINDINGS: No pneumothorax. There are low lung volumes. The heart is mildly enlarged. There is perihilar interstitial/vascular thickening consistent with mild congestive change. There are patchy left lower lobe airspace opacities. Mild elevation the right hemidiaphragm. There is a right shoulder prosthesis. IMPRESSION: 1. Patchy left basilar airspace opacities likely representing a pneumonia. 2. Cardiomegaly with mild congestive change. ACT 112: Negative or not required by law. Electronically signed by: Evens Mendez M.D. 04/23/2022 10:45 AM Medications Administered Current Inpatient Medications Acetaminophen (Acetaminophen 325 Mg Tab) 650 mg PO Q4H PRN PRN Reason: Moderate Pain Stop: 05/23/22 15:01 Albuterol (Albut/Ipratrop 3mg/0.5mg Neb 3 Ml Vial) 3 ml NEB Q4R [facility]; Protocol Stop: 05/23/22 15:01 Last Admin: 04/24/22 11:29 Dose: 3 ml Alfuzosin HCl (Alfuzosin Hcl 10 Mg Tab) 10 mg PO [facility] Stop: 05/24/22 08:59 Last Admin: 04/24/22 08:45 Dose: 10 mg Aspirin (Aspirin 81 Mg Ectab) 81 mg PO [facility] Stop: 05/24/22 08:59 Last Admin: 04/24/22 08:44 Dose: 81 mg Dextrose (Dextrose 50% 50 Ml Syringe) 25 - 50 ml IV UD PRN; Protocol PRN Reason: Hypoglycemia Protocol Stop: 05/23/22 15:01 Enoxaparin Sodium (Enoxaparin Inj 40 Mg/0.4 Ml Syr) 40 mg SQ [facility] Stop: 05/24/22 08:59 Last Admin: 04/24/22 08:43 Dose: 40 mg Famotidine (Famotidine 40 Mg Tablet) 40 mg PO BID [facility] Stop: 05/23/22 20:59 Last Admin: 04/24/22 08:45 Dose: 40 mg Fluticasone Furoate (Fluticasone Furoate 100mcg 14 Puffs/Inhaler) 1 puffs INH [facility]; Protocol Stop: 05/24/22 08:59 Last Admin: 04/24/22 08:43 Dose: 1 puffs Furosemide (Furosemide 20 Mg Tab) 20 mg PO [facility] Stop: 05/24/22 08:59 Last Admin: 04/24/22 08:44 Dose: 20 mg Glucagon (Glucagon For Inj 1 Mg Vial) 1 mg SQ UD PRN; Protocol PRN Reason: Hypoglycemia Protocol Stop: 05/23/22 15:01 Glucose (Glucose 40% Gel 15 Gm Tube) 15 - 30 gm PO UD PRN; Protocol PRN Reason: Hypoglycemia Protocol Stop: 05/23/22 15:01 Glucose (Glucose 10 Tab/Tube) 4 - 8 tab PO UD PRN; Protocol PRN Reason: Hypoglycemia Treatment Stop: 05/23/22 15:01 Guaifenesin (Guaifenesin 600 Mg Tabcr) 1,200 mg PO Q12 [facility] Stop: 05/23/22 20:59 Last Admin: 04/24/22 08:44 Dose: 1,200 mg Guaifenesin/Codeine Phosphate (Guaifenesin/Codeine 100mg/10mg 5ml Udc) 5 ml PO Q6H PRN PRN Reason: Cough Stop: 05/23/22 15:01 Ceftriaxone Sodium 2,000 mg/ (Dextrose) 70 mls @ 100 mls/hr IV Q24H [facility]; Protocol Stop: 05/01/22 12:44 Doxycycline Hyclate 100 mg/ (Dextrose) 110 mls @ 50 mls/hr IV Q12H [facility] Stop: 05/01/22 12:44 Insulin Aspart (Insulin Aspart Per Unit) 0 units SC ACHS [facility] Stop: 05/23/22 20:59 Last Admin: 04/24/22 12:42 Dose: 26 units Insulin Glargine (Lantus Per Unit Charge) 25 units SQ BID [facility] Stop: 05/24/22 08:59 Last Admin: 04/24/22 08:42 Dose: 25 units Levothyroxine Sodium (Levothyroxine Sodium 150 Mcg Tablet) 150 mcg PO DAILYBB [facility] Stop: 05/24/22 06:29 Last Admin: 04/24/22 05:58 Dose: 150 mcg Lisinopril (Lisinopril 20 Mg Tab) 20 mg PO QAM [facility] Stop: 05/24/22 08:59 Last Admin: 04/24/22 08:44 Dose: 20 mg Magnesium Oxide (Magnesium Oxide 400 Mg Tab) 400 mg PO QAM [facility] Stop: 05/24/22 08:59 Last Admin: 04/24/22 08:45 Dose: 400 mg Miscellaneous (Carbohydrates For Hypoglycemia ) 15 - 30 gm PO UD PRN PRN Reason: Hypoglycemia Protocol Stop: 05/23/22 15:01 Miscellaneous Information (Pharmacy Glycemic Mgmt Consult) 1 each N/A UD PRN; Protocol PRN Reason: Consult Stop: 05/24/22 08:05 Multivitamins/Minerals (Cerovite Adv Formula Tab) 1 tab PO QAM [facility]; Protocol Stop: 05/24/22 08:59 Last Admin: 04/24/22 08:43 Dose: 1 tab Ondansetron HCl (Ondansetron Inj 2 Mg/Ml 2 Ml Vial) 4 mg IV Q4H PRN PRN Reason: Nausea And Vomiting Stop: 05/23/22 15:01 Oxybutynin Chloride (Oxybutynin Chloride 5 Mg Tab) 5 mg PO BID [facility] Stop: 05/23/22 20:59 Last Admin: 04/24/22 08:45 Dose: 5 mg Pantoprazole Sodium (Pantoprazole 40 Mg Tab) 40 mg PO QAM [facility]; Protocol Stop: 05/24/22 08:59 Last Admin: 04/24/22 08:46 Dose: 40 mg Potassium Chloride (Potassium Chloride Crtab 20 Meq Tabcr) 20 meq PO QAM [facility] Stop: 05/24/22 08:59 Last Admin: 04/24/22 08:45 Dose: 20 meq Simvastatin (Simvastatin 40 Mg Tab) 40 mg PO DAILY [facility] Stop: 05/24/22 08:59 Last Admin: 04/24/22 08:45 Dose: 40 mg Umeclidinium/Vilanterol (Umeclidinium/Vilanterol 62.5/25mcg 7 Puffs/Inhaler) 1 puffs INH QAM [facility]; Protocol Stop: 05/24/22 08:59 Last Admin: 04/24/22 08:42 Dose: 1 puffs
--- NOTE | 2022-04-24 13:27 | Pharmacy Report ---
Pharmacy Glycemic Short Note 2 - Date of Service April 24, 2022 - Glycemic Short BSG Results (Last 24 hours): 04/23/22 04/23/22 04/23/22 17:10 17:13 18:19 Glucose POC Glucose 344 H* 369 H* 353 H* 04/23/22 04/24/22 04/24/22 20:29 05:36 07:54 Glucose 325 H* POC Glucose 369 H* 326 H* 04/24/22 04/24/22 04/24/22 07:54 07:55 11:42 Glucose POC Glucose 290 H 305 H* 284 H OUTPATIENT ANTIDIABETIC REGIMEN: * glipizide ER 10 mg BID * HbA1C = 8.7% (04/24/22) ASSESSMENT: * Mr Dwyer is a 71 y/o M with a PMH of T2DM who presents with pneumonia. He was given Solu-Medrol 125 mg IV in the ER on 04/23. * BSGs yesterday after steroids were 344/369-369. Patient received Lantus 15 units + Novolog 24 units. * Fasting today was 290 mg/dL after which pharmacy was consulted. * Increased Lantus to weight-based stress of 2 (25 units) plus tightened carbohydrate ratio slightly. * Lunch was beginning to trend down to 284 mg/dL. * For Lantus, will provide scale with 20% reduction since no more steroids ordered. PLAN FOR INPATIENT GLYCEMIC CONTROL: * Hold outpatient oral diabetes medications * Basal insulin * Lantus 25 units SQ BID (20 units if BSG < 140 mg/dL) * Bolus insulin * NovoLog per scale ACHS or Q6hrs while NPO * Goal Range: Low 110 mg/dL - High 140 mg/dL * Correction Factor: 15 mg/dL/unit * Nutritional / Prandial insulin per carb ratio of 1 unit per 4 grams CHO consumed
[2022-04-24] MEDS: cefTRIAXone SODIUM 2,000 MG in DEXTROSE 5% 50 ML IV SCH (13:30)
[2022-04-24] MEDS: DOXYCYCLINE HYCLATE 100 MG in DEXTROSE 5% 100 ML IV SCH (13:30)
[2022-04-24] MEDS: LANTUS PER UNIT CHARGE SQ SCH (20:31)
[2022-04-25] MEDS: DOXYCYCLINE HYCLATE 100 MG in DEXTROSE 5% 100 ML IV SCH (00:43)
[2022-04-25] MEDS: ALBUT/IPRATROP 3MG/0.5MG NEB 3 ML VIAL NEB SCH ×6 (02:22→23:17)
[2022-04-25] MEDS: LEVOTHYROXINE SODIUM 150 MCG TABLET PO SCH (05:52)
[2022-04-25] MEDS: ACETAMINOPHEN 325 MG TAB PO PRN (07:09)
[2022-04-25] MEDS: ALFUZOSIN HCL 10 MG TAB PO SCH (07:58)
[2022-04-25] MEDS: ASPIRIN 81 MG ECTAB PO SCH (07:58)
[2022-04-25] MEDS: FLUTICASONE FUROATE 100MCG 14 PUFFS/INHALER INH SCH (07:59)
[2022-04-25] MEDS: FAMOTIDINE 40 MG TABLET PO SCH ×2 (07:59→20:14)
[2022-04-25] MEDS: ENOXAPARIN INJ 40 MG/0.4 ML SYR SQ SCH (07:59)
[2022-04-25] MEDS: guaiFENesin 600 MG TABCR PO SCH ×2 (08:00→20:15)
[2022-04-25] MEDS: FUROSEMIDE 20 MG TAB PO SCH (08:00)
[2022-04-25] MEDS: lisinopril 20 MG TAB PO SCH (08:00)
[2022-04-25] MEDS: CEROVITE ADV FORMULA TAB PO SCH (08:01)
[2022-04-25] MEDS: MAGNESIUM OXIDE 400 MG TAB PO SCH (08:01)
[2022-04-25] MEDS: OXYBUTYNIN CHLORIDE 5 MG TAB PO SCH ×2 (08:01→20:15)
[2022-04-25] MEDS: PANTOprazole 40 MG TAB PO SCH (08:01)
[2022-04-25] MEDS: SIMVASTATIN 40 MG TAB PO SCH (08:02)
[2022-04-25] MEDS: POTASSIUM CHLORIDE CRTAB 20 MEQ TABCR PO SCH (08:02)
[2022-04-25] MEDS: UMECLIDINIUM/VILANTEROL 62.5/25MCG 7 PUFFS/INHALER INH SCH (08:02)
[2022-04-25] MEDS: INSULIN ASPART PER UNIT SC SCH ×4 (08:15→20:17)
[2022-04-25] MEDS: LANTUS PER UNIT CHARGE SQ SCH ×2 (08:16→20:17)
[2022-04-25 08:19] LABS: Hematocrit (blood only) 46.6 % (40.1-51.0); Mean Corpuscular Hemoglobin 31.6 pg (25.0-34.0); Mean Corpuscular Hgb Conc 32.2 g/dL (32.0-36.0); Mean Corpuscular Volume 98.3 fL (80.0-100.0); Mean Platelet Volume 10.4 fL (9.4-12.4); Platelet Count 176 K/uL (130-400); RDW Coefficient of Variation 13.9 % (11.5-14.5); RDW Standard Deviation 50.4 fL (36.4-46.3); Red Blood Count 4.74 M/uL (4.63-6.08); White Blood Count 8.58 K/ul (4.8-10.8)
[2022-04-25 08:43] LABS: Albumin Globulin Ratio 1.3 (0.9-2); Albumin Level 3.9 gm/dl (3.4-5.0); BUN Creatinine Ratio 34.1 (10-20); Bilirubin,Total 0.3 mg/dl (0.2-1.0); Calcium 8.4 mg/dl (8.5-10.1); Creatinine Clr Calc Pharmacy 113.8 ml/min; Est GFR (African American) 98.6 ml/min; Est GFR (Non-African American) 85.1 ml/min; Globulin 2.9 gm/dl (2.5-4.0); Magnesium 1.9 mg/dl (1.7-2.4); Phosphorus 4.7 mg/dl (2.5-4.9); Potassium 4.4 mmol/L (3.5-5.1); Total Protein 6.8 gm/dl (6.0-8.3)
--- NOTE | 2022-04-25 12:26 | Hospitalist Progress Note ---
Date of Service April 25, 2022 Assessment & Plan (1) Acute respiratory failure with hypoxia: Plan: - likely secondary to pneumonia - RSV, COVID, flu negative - consolidation on CXR in LLL - started on ceftriaxone and doxycycline - wean O2 as tolerated - reportedly on 2.5 L NC at home - 2 step determined need for 3L O2 NC at rest and 4L with activity - stable for discharge back to [facility] with 5 days of Augmentin and doxycycline - likely tomorrow 04/26/2022 (2) COPD (chronic obstructive pulmonary disease): Plan: - likely pneumonia with mild exacerbation - s/p IV steroids in ED on presentation - no wheezes appreciated on exam - will continue abx therapy as above - continue home inhalers (3) Left lower lobe pneumonia: Plan: - Admit to med surg with tele - Supportive care with mucinex, duonebs QID and Q2H prn, cough syrup. No further steroids at this time, given 125 mg Solumedrol in the ER. Day team to reassess - Wean O2 prn - wears 2.5 L previously as outpt but is noncompliant. Scheduled for outpt sleep study for likely DONNA with morbid obesity. Also likely has component of obesity hypoventilation syndrome with body habitus. - Influenza, covid and RSV neg - WBC at time of admission = 7.48 - BCx x 2, follow - Afebrile - CXR reviewed as above showing the LLL pneumonia - Continue antibiotic therapy with Ceftriaxone and doxycycline IV - Hx of smoking 0.25 ppd x 40 years, quit a few months ago when became resident of this facility - 2-setp for 3L at rest and 4L with exertion (4) HTN (hypertension): Plan: - Continue lisinopril, lasix (5) HLD (hyperlipidemia): Plan: - Cont statin therapy (6) Cirrhosis of liver: Plan: - Noted on GI notes from today that this was seen on imaging. Pt reports previous alcohol history but not since being in [facility]. - Will need PCP to monitor - GI follow up as outpatient - no decompensated at this time - Lower extremity edema being treated with lasix (7) DM II (diabetes mellitus, type II), controlled: Plan: - Last A1C was 7.6, will recheck with am labs - Continue ISS with accuchecks achs - Hold glipizide and metformin for now - Glucose was elevated at 255 upon arrival - Glycemic pharmacy consulted (8) Hypothyroidism: Plan: - Cont levothyroxine 150 mcg daily (9) Bipolar disorder: Plan: - noted Plan DVT ppx: teds, scds, Lovenox subcu CODE: Full code Dispo: telemetry - From [facility] in [place], shoe caser to assist with discharge planning. Demetri Santiago MD [facility] Medicine Admission and Anticipated Discharge Date Admission Date: April 23, 2022 Subjective Patient with HTN, HLD, COPD reportedly on home O2 2.5L NC, DM2, hypothyroidism, bipolar disorder, morbid obesity presented with hypoxia and pneumonia, started on antibiotics and supplemental oxygen. Patient reports feeling well today. Denies chest pain, shortness of breath, n/v/d, abdominal pain, dysuria, fevers or chills. Reports cough is improved. Review of Systems Review of Systems: All systems reviewed & are unremarkable except as noted in Subjective Physical Exam Physical Exam: General: awake, alert, no apparent distress, morbidly obese with BMI of 41 Head: Normocephalic, atraumatic ENT: PERRL, EOMI, no pharyngeal exudate, mucous membranes moist Chest: CTAB, no wheezes or rhonchi noted Cardiac: Regular rate and rhythm, no murmur, no JVD, normal peripheral pulses, good capillary refill Abdominal: NABS x 4 quadrants, soft, nondistended, nontender to palpation, no rebound or guarding Extremities: Normal inspection, 1+ peripheral edema of BLE, minimal pitting, no erythema, calfs nontender to palpation Psych: Normal mood and affect, pill-rolling behavior with his left hand throughout exam Neuro: AAO x 3, strength intact bilaterally and rated 5/5 but reduced and reduced ROM on right shoulder due to recent fracture of humerus, no motor deficits, speech is clear, no peripheral sensory deficits Results & Data Results & Data ([facility]) Vital Signs (Past 12 Hours) Vital Signs Temp Pulse Pulse Pulse Pulse Pulse Pulse 04/25/22 11:10 83 90 84 88 78 04/25/22 11:40 37.1 C 04/25/22 11:11 04/25/22 10:23 36.8 C 04/25/22 08:18 36.9 C 04/25/22 07:29 78 04/25/22 07:27 04/25/22 05:02 36.4 C L 04/25/22 02:24 Pulse Pulse Resp Resp Resp Resp Resp 04/25/22 11:10 84 22 20 20 22 04/25/22 11:40 78 20 04/25/22 11:11 78 20 04/25/22 10:23 80 20 04/25/22 08:18 78 20 04/25/22 07:29 04/25/22 07:27 78 18 04/25/22 05:02 82 20 04/25/22 02:24 73 18 Resp Resp BP Pulse Ox Pulse Ox Pulse Ox Pulse Ox 04/25/22 11:10 22 20 87 L 89 L 90 04/25/22 11:40 168/61 H 93 04/25/22 11:11 90 04/25/22 10:23 138/76 90 04/25/22 08:18 138/74 90 04/25/22 07:29 04/25/22 07:27 90 04/25/22 05:02 138/88 90 04/25/22 02:24 95 Pulse Ox Pulse Ox Pulse Ox O2 Del Method O2 Flow Rate O2 Flow Rate O2 Flow Rate 04/25/22 11:10 86 L 89 L 85 L 2 3 04/25/22 11:40 Nebulizer 04/25/22 11:11 Nasal Cannula 5 04/25/22 10:23 Nasal Cannula 5 04/25/22 08:18 Oxymask 5 04/25/22 07:29 04/25/22 07:27 Oxymask 5 04/25/22 05:02 Oxymask 5 04/25/22 02:24 Oxymask 5 O2 Flow Rate O2 Flow Rate O2 Flow Rate 04/25/22 11:10 4 3 3 04/25/22 11:40 04/25/22 11:11 04/25/22 10:23 04/25/22 08:18 04/25/22 07:29 04/25/22 07:27 04/25/22 05:02 04/25/22 02:24 Diagnostic Findings Laboratory Results WBC 8.58 K/ul (4.8-10.8) 04/25/22 06:50 RBC 4.74 M/uL (4.63-6.08) 04/25/22 06:50 Hgb 15.0 g/dl (14.0-18.0) 04/25/22 06:50 Hct 46.6 % (40.1-51.0) 04/25/22 06:50 MCV 98.3 fL (80.0-100.0) 04/25/22 06:50 MCH 31.6 pg (25.0-34.0) 04/25/22 06:50 MCHC 32.2 g/dL (32.0-36.0) 04/25/22 06:50 RDW Std Deviation 50.4 fL (36.4-46.3) H 04/25/22 06:50 RDW Coeff of Anahy 13.9 % (11.5-14.5) 04/25/22 06:50 Plt Count 176 K/uL (130-400) 04/25/22 06:50 MPV 10.4 fL (9.4-12.4) 04/25/22 06:50 Immature Gran % (Auto) 0.5 % 04/23/22 11:02 Neut % (Auto) 70.0 % 04/23/22 11:02 Lymph % (Auto) 20.9 % 04/23/22 11:02 Barbour % (Auto) 6.7 % 04/23/22 11:02 Eos % (Auto) 1.2 % 04/23/22 11:02 Baso % (Auto) 0.7 % 04/23/22 11:02 Neut # (Auto) 5.24 K/uL (1.4-6.5) 04/23/22 11:02 Lymph # (Auto) 1.56 K/uL (1.2-3.4) 04/23/22 11:02 Barbour # (Auto) 0.50 K/uL (0.24-0.82) 04/23/22 11:02 Eos # (Auto) 0.09 K/uL (0-0.50) 04/23/22 11:02 Baso # (Auto) 0.05 K/uL (0-0.2) 04/23/22 11:02 Immature Gran # (Auto) 0.04 K/uL (0.00-0.02) H 04/23/22 11:02 Sodium 138 mmol/L (136-145) 04/25/22 06:50 Potassium 4.4 mmol/L (3.5-5.1) 04/25/22 06:50 Chloride 98 mmol/L (98-107) 04/25/22 06:50 Carbon Dioxide 36 mmol/L (21-32) H 04/25/22 06:50 Anion Gap 4 (3-11) 04/25/22 06:50 BUN 31 mg/dl (6-23) H 04/25/22 06:50 Creatinine 0.91 mg/dl (0.6-1.4) 04/25/22 06:50 Est Cr Clr Drug Dosing 113.8 ml/min 04/25/22 06:50 Est GFR ( Amer) 98.6 ml/min 04/25/22 06:50 Est GFR (Non-Af Amer) 85.1 ml/min 04/25/22 06:50 BUN/Creatinine Ratio 34.1 (10-20) H 04/25/22 06:50 Glucose 195 mg/dl (70-99(Fasting)) H 04/25/22 06:50 POC Glucose 246 mg/dl (70-99) H 04/25/22 11:48 Estimat Average Glucose 203 mg/dl 04/24/22 05:36 Hemoglobin A1c 8.7 % (4.5-5.6) H 04/24/22 05:36 Lactate 1.5 mmol/L (0.4-2.0) 04/23/22 16:06 Calcium 8.4 mg/dl (8.5-10.1) L 04/25/22 06:50 Phosphorus 4.7 mg/dl (2.5-4.9) 04/25/22 06:50 Magnesium 1.9 mg/dl (1.7-2.4) 04/25/22 06:50 Total Bilirubin 0.3 mg/dl (0.2-1.0) 04/25/22 06:50 AST 24 U/L (13-39) 04/25/22 06:50 ALT 23 U/L (7-52) 04/25/22 06:50 Alkaline Phosphatase 85 U/L (34-104) 04/25/22 06:50 Troponin I High Sens 13.4 pg/ml (0-20) 04/23/22 15:50 C-Reactive Protein 0.94 mg/dl (0-0.5) H 04/23/22 14:08 B-Natriuretic Peptide 24 pg/ml (0-100) 04/23/22 11:02 Total Protein 6.8 gm/dl (6.0-8.3) 04/25/22 06:50 Albumin 3.9 gm/dl (3.4-5.0) 04/25/22 06:50 Globulin 2.9 gm/dl (2.5-4.0) 04/25/22 06:50 Albumin/Globulin Ratio 1.3 (0.9-2) 04/25/22 06:50 Lipase 20 U/L (11-82) 04/23/22 11:02 Procalcitonin 0.11 ng/ml (0-0.5) 04/23/22 11:02 SARS-CoV-2 (PCR) NEGATIVE (Negative) 04/23/22 11:05 Influenza Type A (PCR) Negative (Neg) 04/23/22 11:05 Influenza Type B (PCR) Negative (Neg) 04/23/22 11:05 RSV (RT-PCR) Negative (Neg) 04/23/22 11:05 Impressions Chest X-Ray 04/23/22 10:24 XR chest 1V portable HISTORY: Atypical Chest pain, nonspecific COMPARISON: None. FINDINGS: No pneumothorax. There are low lung volumes. The heart is mildly enlarged. There is perihilar interstitial/vascular thickening consistent with mild congestive change. There are patchy left lower lobe airspace opacities. Mild elevation the right hemidiaphragm. There is a right shoulder prosthesis. IMPRESSION: 1. Patchy left basilar airspace opacities likely representing a pneumonia. 2. Cardiomegaly with mild congestive change. ACT 112: Negative or not required by law. Electronically signed by: Evens Mendez M.D. 04/23/2022 10:45 AM Medications Administered Current Inpatient Medications Acetaminophen (Acetaminophen 325 Mg Tab) 650 mg PO Q4H PRN PRN Reason: Moderate Pain Stop: 05/23/22 15:01 Last Admin: 04/25/22 07:09 Dose: 650 mg Albuterol (Albut/Ipratrop 3mg/0.5mg Neb 3 Ml Vial) 3 ml NEB Q4R ADILENE; Protocol Stop: 05/23/22 15:01 Last Admin: 04/25/22 11:10 Dose: 3 ml Alfuzosin HCl (Alfuzosin Hcl 10 Mg Tab) 10 mg PO [facility] Stop: 05/24/22 08:59 Last Admin: 04/25/22 07:58 Dose: 10 mg Aspirin (A[facility]in 81 Mg Ectab) [facility] Stop: 05/24/22 08:59 Last Admin: 04/25/22 07:58 Dose: 81 mg Dextrose (Dextrose 50% 50 Ml Syringe) 25 - 50 ml IV UD PRN; Protocol PRN Reason: Hypoglycemia Protocol Stop: 05/23/22 15:01 Doxycycline Hyclate (Doxycycline Hyclate 100 Mg Cap) 100 mg PO Q12H [facility] Stop: 05/01/22 12:44 Enoxaparin Sodium (Enoxaparin Inj 40 Mg/0.4 Ml Syr) 40 mg SQ [facility] Stop: 05/24/22 08:59 Last Admin: 04/25/22 07:59 Dose: 40 mg Famotidine (Famotidine 40 Mg Tablet) 40 mg PO BID [facility] Stop: 05/23/22 20:59 Last Admin: 04/25/22 07:59 Dose: 40 mg Fluticasone Furoate (Fluticasone Furoate 100mcg 14 Puffs/Inhaler) 1 puffs INH [facility]; Protocol Stop: 05/24/22 08:59 Last Admin: 04/25/22 07:59 Dose: 1 puffs Furosemide (Furosemide 20 Mg Tab) 20 mg PO [facility] Stop: 05/24/22 08:59 Last Admin: 04/25/22 08:00 Dose: 20 mg Glucagon (Glucagon For Inj 1 Mg Vial) 1 mg SQ UD PRN; Protocol PRN Reason: Hypoglycemia Protocol Stop: 05/23/22 15:01 Glucose (Glucose 40% Gel 15 Gm Tube) 15 - 30 gm PO UD PRN; Protocol PRN Reason: Hypoglycemia Protocol Stop: 05/23/22 15:01 Glucose (Glucose 10 Tab/Tube) 4 - 8 tab PO UD PRN; Protocol PRN Reason: Hypoglycemia Treatment Stop: 05/23/22 15:01 Guaifenesin (Guaifenesin 600 Mg Tabcr) 1,200 mg PO Q12 [facility] Stop: 05/23/22 20:59 Last Admin: 04/25/22 08:00 Dose: 1,200 mg Guaifenesin/Codeine Phosphate (Guaifenesin/Codeine 100mg/10mg 5ml Udc) 5 ml PO Q6H PRN PRN Reason: Cough Stop: 05/23/22 15:01 Ceftriaxone Sodium 2,000 mg/ (Dextrose) 70 mls @ 100 mls/hr IV Q24H [facility]; Protocol Stop: 05/01/22 12:44 Last Infusion: 04/24/22 15:15 Dose: Infused Insulin Aspart (Insulin Aspart Per Unit) 0 units SC ACHS [facility] Stop: 05/23/22 20:59 Last Admin: 04/25/22 12:17 Dose: 23 units Insulin Glargine (Lantus Per Unit Charge) 0 units SQ BID [facility]; Protocol Stop: 05/24/22 20:59 Last Admin: 04/25/22 08:16 Dose: 25 units Levothyroxine Sodium (Levothyroxine Sodium 150 Mcg Tablet) [facility] Stop: 05/24/22 06:29 Last Admin: 04/25/22 05:52 Dose: 150 mcg Lisinopril (Lisinopril 20 Mg Tab) [facility] Stop: 05/24/22 08:59 Last Admin: 04/25/22 08:00 Dose: 20 mg Magnesium Oxide (Magnesium Oxide 400 Mg Tab) 400 [facility] Stop: 05/24/22 08:59 Last Admin: 04/25/22 08:01 Dose: 400 mg Miscellaneous (Carbohydrates For Hypoglycemia ) 15 - 30 gm PO UD PRN PRN Reason: Hypoglycemia Protocol Stop: 05/23/22 15:01 Miscellaneous Information (Pharmacy Glycemic Mgmt Consult) 1 each N/A UD PRN; Protocol PRN Reason: Consult Stop: 05/24/22 08:05 Multivitamins/Minerals (Cerovite Adv Formula Tab) [facility] tab [facility]; Protocol Stop: 05/24/22 08:59 Last Admin: 04/25/22 08:01 Dose: 1 tab Ondansetron HCl (Ondansetron Inj 2 Mg/Ml 2 Ml Vial) 4 mg IV Q4H PRN PRN Reason: Nausea And Vomiting Stop: 05/23/22 15:01 Oxybutynin Chloride (Oxybutynin Chloride 5 Mg Tab) 5 mg PO BID [facility] Stop: 05/23/22 20:59 Last Admin: 04/25/22 08:01 Dose: 5 mg Pantoprazole Sodium (Pantoprazole 40 Mg Tab) [facility]; Protocol Stop: 05/24/22 08:59 Last Admin: 04/25/22 08:01 Dose: 40 mg Potassium Chloride (Potassium Chloride Crtab 20 Meq Tabcr) 20 meq [facility] Stop: 05/24/22 08:59 Last Admin: 04/25/22 08:02 Dose: 20 meq Simvastatin (Simvastatin 40 Mg Tab) 40 mg PO DAILY [facility] Stop: 05/24/22 08:59 Last Admin: 04/25/22 08:02 Dose: 40 mg Umeclidinium/Vilanterol (Umeclidinium/Vilanterol 62.5/25mcg 7 Puffs/Inhaler) 1 puffs INH [facility]; Protocol Stop: 05/24/22 08:59 Last Admin: 04/25/22 08:02 Dose: 1 puffs
[2022-04-25] MEDS: DOXYCYCLINE HYCLATE 100 MG CAP PO SCH ×2 (12:49→23:55)
[2022-04-25] MEDS: cefTRIAXone SODIUM 2,000 MG in DEXTROSE 5% 50 ML IV SCH (12:49)
--- NOTE | 2022-04-25 22:35 | Electrocardiogram Report ---
Test Reason : Blood Pressure : / mmHG Vent. Rate : 076 BPM Atrial Rate : 076 BPM P-R Int : 230 ms QRS Dur : 114 ms QT Int : 390 ms P-R-T Axes : 022 -49 051 degrees QTc Int : 438 ms Sinus rhythm with 1st degree A-V block Left anterior fascicular block Moderate voltage criteria for LVH, may be normal variant Abnormal ECG No previous ECGs available Confirmed by Maximiliano Awan ([id number]) on 04/25/2022 10:35:24 PM Referred By: REFERRED SELF Confirmed By:Maximiliano Awan
[2022-04-26] MEDS: ALBUT/IPRATROP 3MG/0.5MG NEB 3 ML VIAL NEB SCH ×2 (03:13→07:27)
[2022-04-26] MEDS: LEVOTHYROXINE SODIUM 150 MCG TABLET PO SCH (05:32)
[2022-04-26] MEDS: ACETAMINOPHEN 325 MG TAB PO PRN (05:32)
--- NOTE | 2022-04-26 05:51 | Electrocardiogram Report ---
Test Reason : Blood Pressure : / mmHG Vent. Rate : 083 BPM Atrial Rate : 083 BPM P-R Int : 226 ms QRS Dur : 120 ms QT Int : 390 ms P-R-T Axes : 026 -45 056 degrees QTc Int : 458 ms Sinus rhythm with 1st degree A-V block Left anterior fascicular block Left ventricular hypertrophy with QRS widening Abnormal ECG When compared with ECG of 23-APR-2022 10:40, No significant change was found Confirmed by Maximiliano Awan ([id number]) on 04/26/2022 5:50:51 AM Referred By: REFERRED SELF Confirmed By:Maximiliano Awan
[2022-04-26] MEDS: ALFUZOSIN HCL 10 MG TAB PO SCH (07:49)
[2022-04-26] MEDS: ASPIRIN 81 MG ECTAB PO SCH (07:49)
[2022-04-26] MEDS: ENOXAPARIN INJ 40 MG/0.4 ML SYR SQ SCH (07:50)
[2022-04-26] MEDS: FAMOTIDINE 40 MG TABLET PO SCH (07:51)
[2022-04-26] MEDS: FLUTICASONE FUROATE 100MCG 14 PUFFS/INHALER INH SCH (07:52)
[2022-04-26] MEDS: FUROSEMIDE 20 MG TAB PO SCH (07:52)
[2022-04-26] MEDS: guaiFENesin 600 MG TABCR PO SCH (07:53)
[2022-04-26] MEDS: lisinopril 20 MG TAB PO SCH (07:53)
[2022-04-26] MEDS: CEROVITE ADV FORMULA TAB PO SCH (07:53)
[2022-04-26] MEDS: MAGNESIUM OXIDE 400 MG TAB PO SCH (07:53)
[2022-04-26] MEDS: OXYBUTYNIN CHLORIDE 5 MG TAB PO SCH (07:54)
[2022-04-26] MEDS: UMECLIDINIUM/VILANTEROL 62.5/25MCG 7 PUFFS/INHALER INH SCH (07:54)
[2022-04-26] MEDS: PANTOprazole 40 MG TAB PO SCH (07:54)
[2022-04-26] MEDS: SIMVASTATIN 40 MG TAB PO SCH (07:54)
--- NOTE | 2022-04-26 08:26 | Pharmacy Report ---
Pharmacy Glycemic Short Note 2 - Date of Service April 26, 2022 - Glycemic Short BSG Results (Last 24 hours): 04/25/22 04/25/22 04/25/22 06:50 11:48 17:03 Glucose 195 H POC Glucose 246 H 172 H 04/25/22 04/26/22 20:14 08:09 Glucose POC Glucose 154 H 161 H OUTPATIENT ANTIDIABETIC REGIMEN: * glipizide ER 10 mg BID * HbA1C = 8.7% (04/24/22) ASSESSMENT: 04/26/22 * Patient's BSGs yesterday were [id number] mg/dL. Patient received 118 units of insulin (50 units of basal and 68 units of bolus). * Fasting today is 161 mg/dL. * Continue Lantus 25 units BID (20 units available if BSG < 140 mg/dL). * Novolog weight-based stress of 2/3. This may require loosening as BSGs trended downwards yesterday but were still above goal range. BACKGROUND * Mr Dwyer is a 71 y/o M with a PMH of T2DM who presents with pneumonia. He was given Solu-Medrol 125 mg IV in the ER on 04/23. * BSGs yesterday after steroids were 344/369-369. Patient received Lantus 15 units + Novolog 24 units. * Fasting today was 290 mg/dL after which pharmacy was consulted. * Increased Lantus to weight-based stress of 2 (25 units) plus tightened carbohydrate ratio slightly. * Lunch was beginning to trend down to 284 mg/dL. * For Lantus, will provide scale with 20% reduction since no more steroids ordered. PLAN FOR INPATIENT GLYCEMIC CONTROL: * Hold outpatient oral diabetes medications * Basal insulin * Lantus 25 units SQ BID (20 units if BSG < 140 mg/dL) * Bolus insulin * NovoLog per scale ACHS or Q6hrs while NPO * Goal Range: Low 110 mg/dL - High 140 mg/dL * Correction Factor: 12 mg/dL/unit * Nutritional / Prandial insulin per carb ratio of 1 unit per 3 grams CHO consumed
[2022-04-26] MEDS: INSULIN ASPART PER UNIT SC SCH (09:07)
[2022-04-26] MEDS: LANTUS PER UNIT CHARGE SQ SCH (09:08)
[2022-04-26] MEDS: POTASSIUM CHLORIDE CRTAB 20 MEQ TABCR PO SCH (09:29)
--- NOTE | 2022-04-26 12:21 | Discharge Summary ---
Date of Service April 26, 2022 Admission HPI Per Admitting Provider This is a 71-year-old male with PMHx of HTN, HLD, COPD, DM type II, hypothyroidism, bipolar and personality disorder, morbid obesity with BMI of 41.1 who presents to the ER from the GI clinic today after development of substernal chest pain and found to be hypoxic with O2 sats in the low 80s. The patient reports that he has been coughing and bringing up yellow to clear mucus occasionally in the last week. He notes this has been going on for months but feels it specifically worsened in the last week. He denies any known sick contacts but does come from [facility] in [facility] and is around many residents. He denies any other upper respiratory symptoms including fever, chills or sweats. His appetite has been good, no abdominal complaints, bowels moving regularly, no complaints of urination. Discussion with nurse at [facility] was held via phone, she reports that he is supposed to wear 2.5 L of O2 at rest and with exertion however he stopped doing this several months ago. Patient had a right humerus fracture after a fall sustained in December 2021 which was treated surgically and after that procedure, he felt that he did not need to wear O2 any longer. He is scheduled for an outpatient sleep apnea study soon however is not currently on any CPAP. Admission Exam Per Admitting Provider General: awake, alert, no apparent distress, morbidly obese with BMI of 41 Head: Normocephalic, atraumatic ENT: PERRL, EOMI, no pharyngeal exudate, mucous membranes moist Chest: Left lobe with diminished breath sounds as well as inspiratory and expiratory wheeze, rales. Maintaining at low 90s on oximask, right side without no adventitious breath sounds Cardiac: Regular rate and rhythm, no murmur, no JVD, normal peripheral pulses, good capillary refill Abdominal: NABS x 4 quadrants, soft, nondistended, nontender to palpation, no rebound or guarding Extremities: Normal inspection, 1+ peripheral edema of BLE, minimal pitting, no erythema, calfs nontender to palpation Psych: Normal mood and affect, pill-rolling behavior with his left hand throughout exam Neuro: AAO x 3, strength intact bilaterally and rated 5/5, no motor deficits, speech is clear, no peripheral sensory deficits Principal Diagnosis Pneumonia Discharge Exam General: awake, alert, no apparent distress, morbidly obese with BMI of 41 Head: Normocephalic, atraumatic ENT: PERRL, EOMI, no pharyngeal exudate, mucous membranes moist Chest: CTAB, no wheezes or rhonchi noted Cardiac: Regular rate and rhythm, no murmur, no JVD, normal peripheral pulses, good capillary refill Abdominal: NABS x 4 quadrants, soft, nondistended, nontender to palpation, no rebound or guarding Extremities: Normal inspection, 1+ peripheral edema of BLE, minimal pitting, no erythema, calfs nontender to palpation Psych: Normal mood and affect, pill-rolling behavior with his left hand throughout exam Neuro: AAO x 3, strength intact bilaterally and rated 5/5 but reduced and reduced ROM on right shoulder due to recent fracture of humerus, no motor deficits, speech is clear, no peripheral sensory deficits Discharge Data Allergies Allergy/AdvReac Type Severity Reaction Status Date / Time No Known Drug Allergies Allergy Verified 04/23/22 13:30 Consultations 04/23/22 12:53 ED Decision to Admit Stat Hospital Course (1) Acute respiratory failure with hypoxia: - likely secondary to pneumonia - RSV, COVID, flu negative - consolidation on CXR in LLL - started on ceftriaxone and doxycycline - wean O2 as tolerated - reportedly on 2.5 L NC at home - 2 step determined need for 3L O2 NC at rest and 4L with activity - stable for discharge back to [facility] with 5 days of Augmentin and doxycycline today 04/26/2022 (2) COPD (chronic obstructive pulmonary disease): - likely pneumonia with mild exacerbation - s/p IV steroids in ED on presentation - no wheezes appreciated on exam - will continue abx therapy as above - continue home inhalers (3) Left lower lobe pneumonia: - Admit to med surg with tele - Supportive care with mucinex, duonebs QID and Q2H prn, cough syrup. No further steroids at this time, given 125 mg Solumedrol in the ER. Day team to reassess - Wean O2 prn - wears 2.5 L previously as outpt but is noncompliant. Scheduled for outpt sleep study for likely DONNA with morbid obesity. Also likely has component of obesity hypoventilation syndrome with body habitus. - Influenza, covid and RSV neg - WBC at time of admission = 7.48 - BCx x 2, follow - Afebrile - CXR reviewed as above showing the LLL pneumonia - Continue antibiotic therapy with Ceftriaxone and doxycycline IV - Hx of smoking 0.25 ppd x 40 years, quit a few months ago when became resident of this facility - 2-setp for 3L at rest and 4L with exertion (4) HTN (hypertension): - Continue lisinopril, lasix (5) HLD (hyperlipidemia): - Cont statin therapy (6) Cirrhosis of liver: - Noted on GI notes from today that this was seen on imaging. Pt reports previous alcohol history but not since being in [facility]. - Will need PCP to monitor - GI follow up as outpatient - no decompensated at this time - Lower extremity edema being treated with lasix (7) DM II (diabetes mellitus, type II), controlled: - Last A1C was 7.6, will recheck with am labs - Continue ISS with accuchecks achs - Hold glipizide and metformin for now - Glucose was elevated at 255 upon arrival - Glycemic pharmacy consulted (8) Hypothyroidism: - Cont levothyroxine 150 mcg daily (9) Bipolar disorder: - noted Plan DVT ppx: teds, scds, Lovenox subcu CODE: Full code Dispo: telemetry - From [facility] in [place], bilingual patient support caseworker to assist with discharge planning. Demetri Santiago MD [facility] Total Time Total Time Spent Total Time Spent (In Minutes): 27 Total Time Includes: Examination of the Patient, Discharge Planning and Medication Reconciliation Discharge Plan Discharge Items Patient Disposition: Personal Detention Reason For Visit: PNEUMONIA, HYPOXIA Discharge Diagnosis: pneumonia, chronic hypoxic respiratory failure with hypoxia Activity: Resume your previous activity Non-emergency contact: Primary Care Provider and Lead Applications Developer Call non-emergency contact if: you have any medication questions and your symptoms worsen Follow-up/Referrals: Zohra Loo CRNP [Primary Care Provider] - Diet: Carb Consistent or DM2 and Heart Healthy Addtl Attending Provider Instructions: You were admitted due to low oxygenation and found to have a pneumonia for which you received antibiotics and had improvement in your symptoms. You are normally on oxygen at home but seemed to require more oxygen on discharge. You were evaluated for your oxygen needs and found to need 3L Oxygen at rest and 4L oxygen with activity. You will need to finish 4 more days of antibiotics with Augmentin and doxycycline. Please follow up with your primary care doctor and machine shop lead man on discharge. Pending Studies at Discharge: No Stand-Alone Forms: [employer], Smoking Cessation Skilled Items Patient informed of condition?: Yes DNR: No Discharge Level of Care: Other Communicable Disease: No Discharge Prognosis: Stable Lines: None Urinary Catheter: No Medications and DC Order Prescriptions: New amoxicillin-pot clavulanate 875-125 mg tablet 1 tab PO BID Qty: 8 0RF doxycycline hyclate 100 mg tablet 100 mg PO BID 4 Days Qty: 8 0RF Continued ipratropium-albuterol 0.5 mg-3 mg(2.5 mg base)/3 mL solution for nebulization 1 ml INHALATION TID loperamide 2 mg capsule 2 mg PO Q4H PRN (Reason: Diarrhea) ibuprofen 800 mg tablet 800 mg PO TID glipizide 10 mg tablet extended release 24hr 100 mg PO BID lisinopril 20 mg tablet 20 mg PO QAM famotidine 40 mg tablet 40 mg PO BID aspirin 81 mg tablet,delayed release (DR/EC) 81 mg PO QAM simvastatin 40 mg tablet 40 mg PO DAILY potassium chloride 20 mEq tablet,ER particles/crystals 20 meq PO QAM magnesium oxide 400 mg (241.3 mg magnesium) tablet 400 mg PO QAM ferrous sulfate [FeroSul] 325 mg (65 mg iron) tablet 325 mg PO QAM levothyroxine 150 mcg tablet 150 mcg PO QAM omeprazole 20 mg capsule,delayed release(DR/EC) 20 mg PO QAM furosemide 20 mg tablet 20 mg PO QAM oxybutynin chloride 5 mg tablet 5 mg PO BID alfuzosin 10 mg tablet extended release 24 hr 10 mg PO QAM PreserVision AREDS-2 250-90-40-1 mg capsule 2 tab PO QAM Trelegy Ellipta 100-62.5-25 mcg blister with device 1 inh INHALATION DAILY Discharge Orders: Discharge Order (Routine); Ordered 04/26/22 Ordered By: Demetri Pearson/Other Patient Handouts: Managing Type 2 Diabetes, Healthy Snacking Admission Data Admit Date/Time: 04/23/22 12:54 Attending Provider: Demetri Santiago Admit Provider: Man Sandy Primary Care Provider: Zohra Loo Other Providers: Man Sandy Other Interventions: Discharge Summary Assessment (RN) Last Done: 04/26/22 09:33
== END 2022-04-26 10:11 | disposition home or self-care (01) | DRG 193 ==
LOC: ED 10:18 → SUATTDRO 12:54 → EDINP 12:54 → 2N 15:01